=== PATIENT | male | born 1965 | race Caucasian/White ===

== ENCOUNTER → 2024-04-29 | Outpatient (CLI) | payer OTHER ==
[2024-04-29 14:07] LABS: HEMOGLOBIN A1c 7.3 % (4.0-6.0)
== END ==
LOC: M LAB 12:53
PROVIDERS: ATTEND Registered Nurse Psychiatric/Mental Health
DX: F43.0 Acute stress reaction (principal)

== ENCOUNTER 2024-05-14 13:53 | Emergency (ER) | payer OTHER ==
[~2024-05-14] VITALS: Ht 185.4 cm; Wt 97.6 kg
[2024-05-14] MEDS: METOCLOPRAMIDE INJ 10MG/2ML VIAL IV ONE (18:23)
[2024-05-14] MEDS: LORazepam 2 MG/ML 1ML VIAL IV ONE (18:23)
[2024-05-14] MEDS: NS 500 ML IV ONE (18:31)
[2024-05-14] MEDS: ACETAMINOPHEN *IV* 1,000 MG in IV 1 EA IV ONE (18:31)
[2024-05-14] MEDS ORDERED: ISOVUE-370 76% 100ML VIAL As Ordered ONE (18:34)
[2024-05-14 18:48] LABS: BASO # 0.1 10^3/uL (0.0-0.2); BASO % 0.6 % (0.0-1.0); EOS # 0.1 10^3/uL (0.0-0.5); EOS % 1.1 % (0.0-3.0); HEMATOCRIT 43.5 % (42.0-52.0); HEMOGLOBIN 14.8 g/dl (13.5-17.5); LYMPH # 2.5 10^3/uL (1.5-5.0); LYMPH % 31.5 % (24.0-44.0); MEAN CORPUSCULAR HEMOGLOBIN 31.2 pg (27.0-33.0); MEAN CORPUSCULAR VOLUME 91.8 fl (80.0-96.0); MONO # 0.6 10^3/uL (0.0-0.8); MONO % 7.5 % (2.0-8.0); NEUTROPHILS # 4.7 10^3/uL (1.5-8.5); NEUTROPHILS % 59.1 % (36.0-66.0); PLATELET COUNT, AUTOMATED 246 10^3/uL (150-450); RED BLOOD COUNT 4.74 10^6/uL (4.30-6.10)
[2024-05-14 19:23] LABS: FREE T4 1.1 NG/DL (0.89-1.76); THYROID STIMULATING HORMONE 0.876 uIU/ML (0.55-4.78)
[2024-05-14] MEDS ORDERED: CYCL5TAB4 PO (19:33)
[2024-05-14 19:47] VITALS: BP 149/70; TEMP 97.3; O2SAT 96
== END 2024-05-14 19:50 | disposition home or self-care (01) ==
LOC: M ED 13:53
DX: G44.229 Chronic tension-type headache, not intractable (principal); E10.9 Type 1 diabetes mellitus without complications; E06.5 Other chronic thyroiditis; F43.10 Post-traumatic stress disorder, unspecified; F41.9 Anxiety disorder, unspecified; F32.A Depression, unspecified
CPT/HCPCS: 70450; 70496; 70498; 80047; 84439; 84443; 85025; 96365; 96375; 99284; J0131; J2060; J2765; Q9967

== ENCOUNTER 2024-06-06 16:42 | Inpatient (IN) | payer OTHER ==
[~2024-06-06] VITALS: Ht 185.4 cm; Wt 92.5 kg
[~2024-06-06 16:42] MED LIST: CYCL5TAB4 PO
[2024-06-06 17:26] LABS: HEMATOCRIT 52.5 % (42.0-52.0); HEMOGLOBIN 18.1 g/dl (13.5-17.5); MEAN CORPUSCULAR HEMOGLOBIN 30.7 pg (27.0-33.0); MEAN CORPUSCULAR HGB CONC 34.5 g/dl (32.0-36.5); PLATELET COUNT, AUTOMATED 254 10^3/uL (150-450); WHITE BLOOD COUNT 11.8 10^3/uL (4.0-10.0)
[2024-06-06 17:39] LABS: SALICYLATE LEVEL < 3.0 MG/DL (<30)
[2024-06-06 17:40] LABS: ALBUMIN 4.4 G/DL (3.2-5.2); ALKALINE PHOSPHATASE 70 U/L (40-129); ALT/SGPT 26 U/L (7.0-40); AST/SGOT 34 U/L (<34); BILIRUBIN,DIRECT 0.1 MG/DL (<0.4); BILIRUBIN,TOTAL 0.2 MG/DL (0.3-1.2); BLOOD UREA NITROGEN 15 MG/DL (9-23); CALCIUM LEVEL 9.2 MG/DL (8.3-10.6); CARBON DIOXIDE LEVEL 19 MMOL/L (20-31); CHLORIDE LEVEL 108 MMOL/L (98-107); CREATININE FOR GFR 0.68 MG/DL (0.70-1.30); GLOMERULAR FILTRATION RATE > 60.0 (>49); GLUCOSE, FASTING 145 MG/DL (74-106); POTASSIUM SERUM 4.4 MMOL/L (3.5-5.1); SODIUM LEVEL 143 MMOL/L (136-145); TOTAL PROTEIN 8.2 G/DL (5.7-8.2)
[2024-06-06 17:49] LABS: ETHYL ALCOHOL (ETHANOL) 0.257 % (0.000-0.010)
[2024-06-06 17:51] LABS: THYROID STIMULATING HORMONE 0.953 uIU/ML (0.55-4.78)
[2024-06-06 19:06] LABS: MAGNESIUM LEVEL 1.8 MG/DL (1.8-2.4)
[2024-06-06 20:02] LABS: AMPHETAMINES LEVEL URINE NEGATIVE (NEGATIVE); BARBITURATES URINE NEGATIVE (NEGATIVE); BENZODIAZEPINES URINE NEGATIVE (NEGATIVE); COCAINE METABOLITE URINE NEGATIVE (NEGATIVE); METHADONE URINE NEGATIVE (NEGATIVE); OPIATES URINE NEGATIVE (NEGATIVE)
[2024-06-06 20:03] LABS: CANNABINOIDS URINE NEGATIVE (NEGATIVE); PHENCYCLIDINE URINE NEGATIVE (NEGATIVE)
[2024-06-06] MEDS ORDERED: CYCL5TAB4 PO (20:31)
[2024-06-06] MEDS ORDERED: LORA1TAB23 PO (20:32)
[2024-06-06] MEDS ORDERED: HYDR50TA70 PO (20:35)
[2024-06-06] MEDS ORDERED: QUET150T18 PO (20:35)
[2024-06-06] MEDS ORDERED: FLUO-365 PO (20:38)
[2024-06-06] MEDS ORDERED: FLUO40CA PO (20:38)
[2024-06-06] MEDS ORDERED: METF10004 PO (20:38)
[2024-06-06] MEDS ORDERED: JARD1TAB3 PO (20:40)
[2024-06-06] MEDS ORDERED: LEVO25TA5 PO (20:40)
[2024-06-06] MEDS ORDERED: ATOR40TA75 PO (20:41)
[2024-06-06] MEDS ORDERED: LANTINJ4 SQ (20:41)
[2024-06-06] MEDS ORDERED: LISI10TA22 PO (20:42)
[2024-06-06] MEDS ORDERED: HOME MED LIST COMPLETE! XX SCH (20:45)
[2024-06-06] MEDS: FLUoxetine 20MG CAP PO ONE (22:50)
[2024-06-06] MEDS: QUEtiapine FUMARATE 100 MG TAB PO ONE (22:51)
[2024-06-06] MEDS: LORazepam 2 MG TAB PO PRN (22:51)
[2024-06-06] MEDS: CYCLOBENZAPRINE 5MG TABLET PO ONE (22:51)
[2024-06-06] MEDS: ATORVASTATIN 20 MG TAB PO ONE (22:51)
[2024-06-06] MEDS: THIAMINE 100 MG TAB PO SCH (22:51)
[2024-06-06] MEDS: ACETAMINOPHEN 325 MG TAB PO ONE (22:52)
[2024-06-06] MEDS: metFORMIN (GLUCOPHAGE) 1000MG TABLET PO ONE (22:52)
[2024-06-06] MEDS: hydrOXYzine 50 MG TAB PO STA (22:53)
[2024-06-06] MEDS: LEVEMIR (INSULIN DETEMIR) 1 UNITS/0.01ML SC ONE (22:54)
[2024-06-07] MEDS: IBUPROFEN 800 MG TAB PO ONE (05:55)
[2024-06-07] MEDS: MULTIVITAMINS/MINERALS THERAP 1 TAB PO SCH (09:16)
[2024-06-07] MEDS: FOLIC ACID 1MG TAB PO SCH (09:16)
[2024-06-07 16:16] VITALS: BP 152/92; TEMP 98.4; O2SAT 98
[2024-06-07 16:18] VITALS: BP 143/67
[2024-06-07] MEDS ORDERED: MOM 30ML SUSPENSION UDC PO PRN (17:05)
[2024-06-07] MEDS ORDERED: LORazepam 2 MG TAB PO PRN ×2 (17:05→17:45)
[2024-06-07] MEDS ORDERED: MAALOX 30 ML SUSP *UDC PO PRN (17:05)
[2024-06-07] MEDS ORDERED: GLUCAGON INJ 1MG VIAL SC PRN (17:25)
[2024-06-07] MEDS ORDERED: DEXTROSE 50% 50ML SYRINGE IV PRN (17:25)
[2024-06-07] MEDS ORDERED: GLUCOSE 4 GM CHEW PO PRN (17:25)
[2024-06-07 18:08] VITALS: BP 148/70
[2024-06-07] MEDS: metFORMIN (GLUCOPHAGE) 1000MG TABLET PO SCH (18:17)
[2024-06-07] MEDS: THIAMINE 100 MG TAB PO SCH (20:33)
[2024-06-07] MEDS: ONDANSETRON 4MG TAB PO ONE (20:33)
[2024-06-07] MEDS: LEVEMIR (INSULIN DETEMIR) 1 UNITS/0.01ML SQ SCH (20:33)
[2024-06-07] MEDS: LORazepam 1 MG TAB PO ONE (20:34)
[2024-06-07] MEDS: traZODone 50 MG TAB PO PRN (20:34)
[2024-06-07] MEDS: IBUPROFEN 400MG TAB PO PRN (20:34)
[2024-06-07] MEDS ORDERED: THIAMINE 100 MG TAB PO SCH (21:00)
[2024-06-07] MEDS: CYCLOBENZAPRINE 5MG TABLET PO PRN (21:16)
[2024-06-07] MEDS: hydrOXYzine 50 MG TAB PO SCH (21:17)
[2024-06-07] MEDS: QUEtiapine FUMARATE 50MG TAB PO SCH (21:17)
[2024-06-07 22:00] VITALS: BP 154/81
[2024-06-08] MEDS: LEVOTHYROXINE 25MCG TABLET (0.025MG) PO SCH (05:58)
[2024-06-08 06:03] VITALS: BP 140/70; TEMP 97.4; O2SAT 95
[2024-06-08 07:54] LABS: HEMATOCRIT 43.6 % (42.0-52.0); MEAN CORPUSCULAR HEMOGLOBIN 30.7 pg (27.0-33.0); MEAN CORPUSCULAR HGB CONC 34.4 g/dl (32.0-36.5); MEAN CORPUSCULAR VOLUME 89.3 fl (80.0-96.0); PLATELET COUNT, AUTOMATED 189 10^3/uL (150-450); RED BLOOD COUNT 4.88 10^6/uL (4.30-6.10); WHITE BLOOD COUNT 7.8 10^3/uL (4.0-10.0)
[2024-06-08 08:09] LABS: BLOOD UREA NITROGEN 34 MG/DL (9-23); CALCIUM LEVEL 9.6 MG/DL (8.3-10.6); CARBON DIOXIDE LEVEL 28 MMOL/L (20-31); CHLORIDE LEVEL 106 MMOL/L (98-107); CREATININE FOR GFR 0.78 MG/DL (0.70-1.30); GLOMERULAR FILTRATION RATE > 60.0 (>49); GLUCOSE, FASTING 163 MG/DL (74-106); POTASSIUM SERUM 4.1 MMOL/L (3.5-5.1); SODIUM LEVEL 139 MMOL/L (136-145)
[2024-06-08 08:15] VITALS: BP 118/82
[2024-06-08] MEDS: FOLIC ACID 1MG TAB PO SCH (08:18)
[2024-06-08] MEDS: ATORVASTATIN 20 MG TAB PO SCH (08:18)
[2024-06-08] MEDS: MULTIVITAMINS/MINERALS THERAP 1 TAB PO SCH (08:18)
[2024-06-08] MEDS ORDERED: MULTIVITAMINS/MINERALS THERAP 1 TAB PO SCH (09:00)
[2024-06-08] MEDS ORDERED: FOLIC ACID 1MG TAB PO SCH (09:00)
[2024-06-08] MEDS: LORazepam 1 MG TAB PO PRN (09:27)
[2024-06-08 09:46] LABS: FREE T3 3.9 PG/ML (2.3-4.2); FREE T4 1.23 NG/DL (0.89-1.76)
[2024-06-08 16:13] VITALS: BP 127/65; TEMP 98.2; O2SAT 96
[2024-06-08] MEDS: NICOTINE POLACRILEX 2 MG GUM PO PRN (16:50)
[2024-06-08] MEDS: diphenhydrAMINE 25MG CAP PO PRN (20:17)
[2024-06-08 22:31] VITALS: BP 126/61
[2024-06-09 06:00] VITALS: BP 122/69
[2024-06-09 06:39] VITALS: BP 122/69; TEMP 97.3; O2SAT 96
[2024-06-09] MEDS: ACETAMINOPHEN 325 MG TAB PO PRN (09:30)
[2024-06-09] MEDS: ONDANSETRON 4MG TAB PO PRN (10:14)
[2024-06-09 14:30] VITALS: BP_SYST 100; BP_SYST 110; BP_DIAS 58; TEMP 97.7; O2SAT 99
[2024-06-09] MEDS: LORazepam 1 MG TAB PO SCH (15:00)
[2024-06-10 06:32] VITALS: BP 125/59; TEMP 97.4; O2SAT 100
[2024-06-10 09:17] VITALS: BP 93/53
[2024-06-10] MEDS ORDERED: FLUoxetine 20MG CAP PO SCH (10:08)
[2024-06-10 14:00] VITALS: BP 112/64
[2024-06-10] MEDS: IBUPROFEN 400MG TAB PO PRN (14:18)
[2024-06-10 15:53] VITALS: BP 124/58; TEMP 98.2; O2SAT 100
[2024-06-10 20:00] VITALS: BP 120/70
[2024-06-11 06:00] VITALS: BP 125/74; TEMP 98.4; O2SAT 97
[2024-06-11 08:51] VITALS: BP 104/66
[2024-06-11] MEDS: FLUoxetine 20MG CAP PO SCH (08:54)
[2024-06-11] MEDS: IBUPROFEN 600MG TAB PO PRN (08:56)
[2024-06-11 08:57] VITALS: BP 104/66
[2024-06-11] MEDS ORDERED: FLUoxetine 20MG CAP PO SCH (09:00)
[2024-06-11 15:13] VITALS: BP 118/67; TEMP 98; O2SAT 96
[2024-06-11] MEDS: SUMAtriptan SUCCINATE 25MG TABLET PO ONE (16:12)
[2024-06-11] MEDS: TOPIRAMATE (TopAMAX) 25 MG TAB PO SCH (18:59)
[2024-06-11] MEDS ORDERED: ENOXAPARIN 100MG/1ML SYRINGE (J1650 PER 10MG) SC SCH (21:55)
[2024-06-11 22:40] LABS: BASO # 0.1 10^3/uL (0.0-0.2); BASO % 0.6 % (0.0-1.0); EOS # 0.2 10^3/uL (0.0-0.5); EOS % 2.9 % (0.0-3.0); HEMATOCRIT 40.8 % (42.0-52.0); HEMOGLOBIN 14.1 g/dl (13.5-17.5); LYMPH # 2.7 10^3/uL (1.5-5.0); MEAN CORPUSCULAR HEMOGLOBIN 30.7 pg (27.0-33.0); MEAN CORPUSCULAR HGB CONC 34.6 g/dl (32.0-36.5); MEAN CORPUSCULAR VOLUME 88.7 fl (80.0-96.0); MONO # 0.6 10^3/uL (0.0-0.8); MONO % 6.9 % (2.0-8.0); NEUTROPHILS # 4.4 10^3/uL (1.5-8.5); NEUTROPHILS % 55.3 % (36.0-66.0); PLATELET COUNT, AUTOMATED 169 10^3/uL (150-450)
[2024-06-11 22:47] VITALS: BP 127/61; TEMP 97.4; O2SAT 95
[2024-06-11 22:51] LABS: ALBUMIN 3.4 G/DL (3.2-5.2); ALKALINE PHOSPHATASE 82 U/L (40-129); ALT/SGPT 24 U/L (7.0-40); AST/SGOT 16 U/L (<34); BILIRUBIN,TOTAL 0.3 MG/DL (0.3-1.2); BLOOD UREA NITROGEN 20 MG/DL (9-23); CALCIUM LEVEL 9.2 MG/DL (8.3-10.6); CARBON DIOXIDE LEVEL 28 MMOL/L (20-31); CHLORIDE LEVEL 100 MMOL/L (98-107); CREATININE FOR GFR 0.75 MG/DL (0.70-1.30); GLOMERULAR FILTRATION RATE > 60.0 (>49); GLUCOSE, FASTING 244 MG/DL (74-106); POTASSIUM SERUM 4.3 MMOL/L (3.5-5.1); SODIUM LEVEL 137 MMOL/L (136-145); TOTAL PROTEIN 6.2 G/DL (5.7-8.2)
[2024-06-11 23:48] LABS: C REACTIVE PROTEIN QUANTITATIV < 0.50 MG/DL (<1.0)
[2024-06-12] MEDS ORDERED: ASPIRIN 81MG CHEW TABLET PEG SCH (09:00)
== END 2024-06-11 22:30 | disposition home or self-care (01) | DRG 881 ==
LOC: M ED 16:42 → M ED INP 06-07 13:23 → M PSY 06-07 15:42
PROVIDERS: ADMIT Psychiatry & Neurology Psychiatry; ATTEND Psychiatry & Neurology Psychiatry
DX: F32.9 Major depressive disorder, single episode, unspecified (principal); R45.851 Suicidal ideations; Z59.00 Homelessness unspecified; I67.6 Nonpyogenic thrombosis of intracranial venous system; I10 Essential (primary) hypertension; E11.40 Type 2 diabetes mellitus with diabetic neuropathy, unspecified; E78.5 Hyperlipidemia, unspecified; F17.200 Nicotine dependence, unspecified, uncomplicated; E86.0 Dehydration; E03.9 Hypothyroidism, unspecified; D75.1 Secondary polycythemia; G89.29 Other chronic pain; M54.9 Dorsalgia, unspecified; F10.10 Alcohol abuse, uncomplicated; Z79.4 Long term (current) use of insulin; Z79.890 Hormone replacement therapy; Z79.899 Other long term (current) drug therapy; Z56.0 Unemployment, unspecified

== ENCOUNTER 2024-06-11 22:10 | Inpatient (IN) | payer OTHER ==
[~2024-06-11] VITALS: Ht 185.4 cm; Wt 96.1 kg
[~2024-06-11 22:10] MED LIST changes: +ATOR40TA75 PO; +FLUO-365 PO; +FLUO40CA PO; +HYDR50TA70 PO; +JARD1TAB3 PO; +LANTINJ4 SQ; +LEVO25TA5 PO; +LISI10TA22 PO; +LORA1TAB23 PO; +METF10004 PO; +QUET150T18 PO
[2024-06-11 22:30] VITALS: BP 136/68; TEMP 98.2; O2SAT 94
[2024-06-11] MEDS ORDERED: HOME MED LIST COMPLETE! XX SCH (22:35)
[2024-06-11] MEDS ORDERED: DEXTROSE 50% 50ML SYRINGE IV PRN (23:25)
[2024-06-11] MEDS ORDERED: GLUCOSE 4 GM CHEW PO PRN (23:25)
[2024-06-11] MEDS ORDERED: GLUCAGON INJ 1MG VIAL SC PRN (23:25)
[2024-06-11] MEDS: ENOXAPARIN 100MG/1ML SYRINGE (J1650 PER 10MG) SC SCH (23:27)
[2024-06-12 00:19] LABS: D-DIMER QUANT < 0.27 ug/mL (<0.5); FIBRINOGEN 309 MG/DL (268-480); INR 0.99; PARTIAL THROMBOPLASTIN TIME 28.8 SECONDS (24.8-34.2); PROTHROMBIN TIME 13.4 SECONDS (12.5-14.5)
[2024-06-12 04:03] VITALS: BP 107/56; TEMP 97.6; O2SAT 96
[2024-06-12] MEDS: LEVOTHYROXINE 25MCG TABLET (0.025MG) PO SCH (05:27)
[2024-06-12 06:34] LABS: HEMOGLOBIN 14.7 g/dl (13.5-17.5); MEAN CORPUSCULAR VOLUME 88.6 fl (80.0-96.0); PLATELET COUNT, AUTOMATED 170 10^3/uL (150-450); RED BLOOD COUNT 4.74 10^6/uL (4.30-6.10); WHITE BLOOD COUNT 7.4 10^3/uL (4.0-10.0)
[2024-06-12 07:03] LABS: ALBUMIN 3.4 G/DL (3.2-5.2); ALKALINE PHOSPHATASE 81 U/L (40-129); ALT/SGPT 24 U/L (7.0-40); AST/SGOT 16 U/L (<34); BILIRUBIN,TOTAL 0.3 MG/DL (0.3-1.2); BLOOD UREA NITROGEN 18 MG/DL (9-23); CALCIUM LEVEL 8.9 MG/DL (8.3-10.6); CARBON DIOXIDE LEVEL 27 MMOL/L (20-31); CHLORIDE LEVEL 103 MMOL/L (98-107); CREATININE FOR GFR 0.65 MG/DL (0.70-1.30); GLOMERULAR FILTRATION RATE > 60.0 (>49); GLUCOSE, FASTING 164 MG/DL (74-106); POTASSIUM SERUM 4.4 MMOL/L (3.5-5.1); SODIUM LEVEL 140 MMOL/L (136-145); TOTAL PROTEIN 6.3 G/DL (5.7-8.2)
[2024-06-12 07:50] VITALS: BP 118/70; TEMP 98.2; O2SAT 96
[2024-06-12] MEDS ORDERED: metFORMIN (GLUCOPHAGE) 1000MG TABLET PO SCH (08:00)
[2024-06-12] MEDS: FLUoxetine 20MG CAP PO SCH (08:47)
[2024-06-12] MEDS: ATORVASTATIN 20 MG TAB PO SCH (08:47)
[2024-06-12] MEDS: INSULIN LISPRO (NovoLOG) PER UNIT SC SCH ×2 (08:49→20:39)
[2024-06-12] MEDS: LORazepam 1 MG TAB PO PRN (08:56)
[2024-06-12] MEDS ORDERED: FLUoxetine 20MG CAP PO SCH (09:00)
[2024-06-12] MEDS: NICOTINE POLACRILEX 2 MG GUM PO PRN (10:58)
[2024-06-12] MEDS: ACETAMINOPHEN 325 MG TAB PO PRN (10:58)
[2024-06-12 12:12] VITALS: BP 108/62; TEMP 98.2; O2SAT 97
[2024-06-12 12:21] LABS: APPEARANCE, URINE CLEAR (CLEAR); BACTERIA, URINE AUTO NEGATIVE (NEGATIVE); BILIRUBIN, URINE AUTO NEGATIVE (NEGATIVE); BLOOD, URINE BLOOD NEGATIVE (NEGATIVE); COLOR, URINE YELLOW (YELLOW); GLUCOSE, URINE (UA) AUTO 3+ mg/dL (NEGATIVE); KETONE, URINE AUTO NEGATIVE (NEGATIVE); LEUKOCYTE ESTERASE, URINE AUTO NEGATIVE (NEGATIVE); NITRITE, URINE AUTO NEGATIVE (NEGATIVE); PROTEIN, URINE AUTO NEGATIVE (NEGATIVE); RBC, URINE AUTO 0 /HPF (0-3); SPECIFIC GRAVITY URINE AUTO 1.014 (1.002-1.035); SQUAMOUS EPITHELIAL CELL UR AU 0 /HPF (0-6); UROBILINOGEN, URINE AUTO 0.2 mg/dL (0.0-2.0); WBC, URINE AUTO 0 /HPF (0-3)
[2024-06-12] MEDS: NS 500 ML IV ONE (12:25)
[2024-06-12] MEDS: ONDANSETRON 4MG 2ML VIAL IV ONE (13:44)
[2024-06-12] MEDS: MAG SULF 1GM/100ML (MAG RUN) 1 GM in IV 1 EA IV ONE (13:44)
[2024-06-12 15:34] VITALS: BP 128/69; TEMP 98.3; O2SAT 97
[2024-06-12] MEDS: VALPROATE SOD INJ 1,000 MG in D5W 50 ML IV ONE (15:55)
[2024-06-12 20:30] VITALS: BP 127/67; TEMP 96.9; O2SAT 96
[2024-06-12] MEDS: LEVEMIR (INSULIN DETEMIR) 1 UNITS/0.01ML SQ SCH (20:40)
[2024-06-12] MEDS: DIVALPROEX 500MG *ER* TAB PO SCH (20:40)
[2024-06-12] MEDS: hydrOXYzine 50 MG TAB PO SCH (20:41)
[2024-06-12] MEDS: FIORICET TAB PO PRN (21:12)
[2024-06-12] MEDS: CYCLOBENZAPRINE 5MG TABLET PO PRN (21:12)
[2024-06-12 23:31] VITALS: BP 131/76; TEMP 97.4; O2SAT 97
[2024-06-13 04:36] VITALS: BP 128/64; TEMP 97.5; O2SAT 96
[2024-06-13 07:20] VITALS: BP 132/79; TEMP 97.1; O2SAT 94
[2024-06-13] MEDS: DULoxetine 30MG CAPSULE (CYMBALTA) PO SCH (09:17)
[2024-06-13 11:34] LABS: DRVV SCREEN 38.1 SECONDS
[2024-06-13 11:46] LABS: PTT LUPUS TYPE ANTICOAG SCREEN 0.93 (0-1.20)
[2024-06-13 12:00] VITALS: BP 133/72; TEMP 98.5; O2SAT 97
[2024-06-13] MEDS: LORazepam 1 MG TAB PO PRN (16:24)
[2024-06-13 16:27] VITALS: BP 145/76; TEMP 98.2; O2SAT 9
[2024-06-13] MEDS ORDERED: DEPA500T2 PO (17:42)
[2024-06-13] MEDS ORDERED: CYMB1CAP5 PO (17:42)
[2024-06-13] MEDS ORDERED: BUTA-198 PO (17:42)
[2024-06-13] MEDS ORDERED: ELIQ5TAB PO (17:49)
[2024-06-13 20:17] VITALS: BP 137/75; TEMP 97; O2SAT 96
[2024-06-13] MEDS ORDERED: med rec comment (22:35)
[2024-06-13 22:43] LABS: CARDIOLIPIN IGA ANTIBODY < 2.0 APL-U/mL (<20.0); CARDIOLIPIN IGG ANTIBODY < 2.0 GPL-U/mL (<20.0); CARDIOLIPIN IGM ANTIBODY < 2.0 MPL-U/mL (<20.0)
== END 2024-06-13 22:00 | DRG 92 ==
LOC: M PCU 22:30
PROVIDERS: ADMIT Student in an Organized Health Care Education/Training Program; ATTEND Student in an Organized Health Care Education/Training Program
DX: I67.6 Nonpyogenic thrombosis of intracranial venous system (principal); R45.851 Suicidal ideations; I10 Essential (primary) hypertension; E11.40 Type 2 diabetes mellitus with diabetic neuropathy, unspecified; E78.5 Hyperlipidemia, unspecified; F32.9 Major depressive disorder, single episode, unspecified; F41.9 Anxiety disorder, unspecified; D75.1 Secondary polycythemia; E86.0 Dehydration; E03.9 Hypothyroidism, unspecified; G44.229 Chronic tension-type headache, not intractable; M54.81 Occipital neuralgia; F17.210 Nicotine dependence, cigarettes, uncomplicated; G89.29 Other chronic pain; G43.909 Migraine, unspecified, not intractable, without status migrainosus; M48.02 Spinal stenosis, cervical region; Z79.899 Other long term (current) drug therapy; Z79.4 Long term (current) use of insulin; Z79.890 Hormone replacement therapy

== ENCOUNTER 2024-06-13 20:26 | Inpatient (IN) | payer OTHER ==
[~2024-06-13] VITALS: Ht 185.4 cm; Wt 97.1 kg
[~2024-06-13 20:26] MED LIST changes: +BUTA-198 PO; +CYMB1CAP5 PO; +DEPA500T2 PO; +ELIQ5TAB PO
[2024-06-13] MEDS ORDERED: MAALOX 30 ML SUSP *UDC PO PRN (21:30)
[2024-06-13] MEDS ORDERED: traZODone 50 MG TAB PO PRN (21:30)
[2024-06-13] MEDS ORDERED: MOM 30ML SUSPENSION UDC PO PRN (21:30)
[2024-06-13 22:07] VITALS: BP 135/69; TEMP 97.7; O2SAT 98
[2024-06-13] MEDS ORDERED: med rec comment (22:35)
[2024-06-13] MEDS ORDERED: HOME MED LIST COMPLETE! XX SCH (22:40)
[2024-06-14 06:39] VITALS: BP 132/67; TEMP 97.8; O2SAT 98
[2024-06-14] MEDS ORDERED: DULoxetine 30MG CAPSULE (CYMBALTA) PO SCH (09:00)
[2024-06-14] MEDS: DULoxetine 30MG CAPSULE (CYMBALTA) PO SCH (09:59)
[2024-06-14] MEDS: NICOTINE POLACRILEX 2 MG GUM PO PRN (10:53)
[2024-06-14] MEDS: APIXABAN 5 MG TAB (ELIQUIS) PO SCH (10:53)
[2024-06-14] MEDS: FIORICET TAB PO PRN (10:55)
[2024-06-14] MEDS: ATORVASTATIN 20 MG TAB PO SCH (11:35)
[2024-06-14] MEDS: LEVOTHYROXINE 25MCG TABLET (0.025MG) PO SCH (11:41)
[2024-06-14] MEDS: LORazepam 1 MG TAB PO SCH (11:55)
[2024-06-14 15:58] VITALS: BP 129/61; TEMP 97.7; O2SAT 95
[2024-06-14] MEDS: metFORMIN (GLUCOPHAGE) 1000MG TABLET PO SCH (17:16)
[2024-06-14] MEDS ORDERED: APIXABAN 5 MG TAB (ELIQUIS) PO SCH (21:00)
[2024-06-14] MEDS ORDERED: metFORMIN (GLUCOPHAGE) 1000MG TABLET PO SCH (21:00)
[2024-06-14] MEDS: QUEtiapine FUMARATE 50MG TAB PO SCH (21:15)
[2024-06-14] MEDS: DIVALPROEX 500MG *ER* TAB PO SCH (21:15)
[2024-06-14] MEDS: hydrOXYzine 50 MG TAB PO SCH (21:15)
[2024-06-14] MEDS: LEVEMIR (INSULIN DETEMIR) 1 UNITS/0.01ML SQ SCH (21:16)
[2024-06-15 06:18] VITALS: BP 120/67; TEMP 97; O2SAT 98
[2024-06-15] MEDS ORDERED: LEVOTHYROXINE 25MCG TABLET (0.025MG) PO SCH (09:00)
[2024-06-15] MEDS: diphenhydrAMINE 25MG CAP PO PRN (14:06)
[2024-06-15 15:22] VITALS: BP 134/71; TEMP 97.7; O2SAT 99
[2024-06-16 06:43] VITALS: BP 102/68; TEMP 98; O2SAT 96
[2024-06-16 15:21] VITALS: BP 135/79; TEMP 97.7; O2SAT 98
[2024-06-17 06:39] VITALS: BP 110/59; TEMP 97.5; O2SAT 94
[2024-06-17 17:49] VITALS: BP 123/60; TEMP 98.2; O2SAT 97
[2024-06-18 07:56] VITALS: BP 92/58
[2024-06-18] MEDS: OLANZapine ORAL DISINTEGRATING TAB 5MG PO PRN (12:26)
[2024-06-18 15:57] VITALS: BP 122/55; TEMP 97.7; O2SAT 98
[2024-06-19 06:44] VITALS: BP 129/66; TEMP 97.9; O2SAT 98
[2024-06-19 08:21] VITALS: BP 121/56
[2024-06-19] MEDS ORDERED: LOPERAMIDE 2 MG CAPLET PO PRN (14:50)
[2024-06-19] MEDS: LOPERAMIDE 2 MG CAPLET PO ONE (15:03)
[2024-06-19] MEDS: ONDANSETRON 4MG ORAL DISINTEGRATING TAB PO PRN (15:19)
[2024-06-19 15:34] VITALS: BP 103/62; TEMP 97.2; O2SAT 96
[2024-06-20 06:35] VITALS: BP 117/53; TEMP 97.9; O2SAT 95
[2024-06-20] MEDS ORDERED: ATOR40TA75 PO (07:34)
[2024-06-20] MEDS ORDERED: METF10004 PO (07:34)
[2024-06-20] MEDS ORDERED: HYDR50TA70 PO (07:34)
[2024-06-20] MEDS ORDERED: QUET150T18 PO (07:34)
[2024-06-20] MEDS ORDERED: LEVO25TA5 PO (07:34)
[2024-06-20] MEDS ORDERED: JARD1TAB3 PO (07:34)
[2024-06-20] MEDS ORDERED: LANTINJ4 SQ (07:34)
[2024-06-20] MEDS ORDERED: LISI10TA22 PO (07:34)
[2024-06-20 08:58] VITALS: BP 116/69
== END 2024-06-20 14:08 | disposition home or self-care (01) | DRG 881 ==
LOC: M PSY 22:00
PROVIDERS: ADMIT Psychiatry & Neurology Psychiatry; ATTEND Psychiatry & Neurology Psychiatry
DX: F32.A Depression, unspecified (principal); I67.6 Nonpyogenic thrombosis of intracranial venous system; E11.40 Type 2 diabetes mellitus with diabetic neuropathy, unspecified; I10 Essential (primary) hypertension; F10.10 Alcohol abuse, uncomplicated; Z79.01 Long term (current) use of anticoagulants; Z79.4 Long term (current) use of insulin; Z79.890 Hormone replacement therapy; Z79.899 Other long term (current) drug therapy